=== PATIENT | male | born 1960 | race Caucasian/White ===

== ENCOUNTER 2021-05-04 14:42 | Emergency (ER) | payer SELFPAY ==
[2021-05-04 14:48] VITALS: BP_SYST 188
--- NOTE | 2021-05-04 15:11 | NUR ---
patient to ed at this for overdose. According to [facility] patient took an edible. patient denies taking an edible. patient NSR to [facility]. patient b/p hypertensive. unable to obtain to urine at this time but will give urinal. will obtain another blood sugar and monitor patient.
[2021-05-04] MEDS ORDERED: NS 500 ML IV ONE (15:15)
--- NOTE | 2021-05-04 15:22 | NUR ---
[facility] at bedside for chest xray at this time. waiting for patient's arm band to scan for accucheck. notified.
[2021-05-04 16:53] LABS: BASOPHILS % (AUTO) 0.1 % (0.0-2.0); HEMATOCRIT 41.2 % (36-54); HEMOGLOBIN 14.1 g/dL (14.0-18.0); LYMPHOCYTES # (AUTO) 0.7 K/uL (1.0-5.5); LYMPHOCYTES % (AUTO) 4.4 % (20.5-51.5); MEAN CORPUSCULAR HEMOGLOBIN 30 pg (27-31); MEAN CORPUSCULAR HGB CONC 34 % (32-36); MEAN CORPUSCULAR VOLUME 87 fL (79.0-98.0); MONOCYTES # (AUTO) 0.5 K/uL (0.0-1.0); MONOCYTES % (AUTO) 3.1 % (1.7-9.3); NEUTROPHILS # (AUTO) 15.2 K/uL (1.8-7.7); NEUTROPHILS % (AUTO) 92.4 % (40.0-70.0); PLATELET COUNT (AUTO) 241 K/uL (130-430); RED BLOOD CELL COUNT(AUTO) 4.76 MIL/uL (4.2-6.2); RED CELL DISTRIBUTION WIDTH 13.2 % (9.0-15.0); WHITE BLOOD COUNT (AUTO) 16.4 K/uL (4.8-10.8)
[2021-05-04 17:01] LABS: ANION GAP 12 (5-15); CALCIUM 8.8 mg/dL (8.4-11.0); CHLORIDE 99 mmol/L (98-107); CREATININE 1.87 mg/dL (0.55-1.30); GLUCOSE 204 mg/dL (70-99); SODIUM SERUM 138 mmol/L (136-145); UREA NITROGEN, BLOOD 19 mg/dL (8-21)
[2021-05-04 17:04] LABS: GFR AFRICAN AMERICAN 48 mL/min (>90); POTASSIUM 2.9 mmol/L (3.5-5.1)
--- NOTE | 2021-05-04 17:09 | NUR ---
PATIENT POTASSIUM 2.9 AND REPORTED TO THE MD AT THIS TIME
[2021-05-04 17:12] LABS: ALANINE AMINOTRANSFERASE 45 U/L (12-78); ALBUMIN 3.6 g/dL (3.4-4.8); ASPARTATE AMINOTRANSFERASE 52 U/L (10-37); TOTAL BILIRUBIN 0.3 mg/dL (0.0-1.0)
[2021-05-04 17:13] LABS: ALCOHOL, BLOOD < 3 mg/dL (<10)
[2021-05-04] MEDS ORDERED: POTASSIUM CHLORIDE 10 MEQ in NACL 0.9% 1,000 ML IV SCH ×8 (17:15)
[2021-05-04] MEDS ORDERED: ONDANSETRON HCL 4 MG/2 ML VIAL IVP ONE (17:15)
--- NOTE | 2021-05-04 17:27 | NUR ---
patient had one large brown emesis at this time. cleaned and given gown and clean linen. patient NSR on the monitor patient refusing to stay in hospital. troponin elevataed and md aware. denies cp, will obtain ekg at this time. nursing service administrator unable to obtain earlier due to patient unable to sit still.
[2021-05-04] MEDS ORDERED: ASPIRIN 325 MG TABLET PO ONE (17:30)
[2021-05-04] MEDS ORDERED: POTASSIUM CHLORIDE 20 MEQ/PKT PACKET PO ONE ×2 (17:30)
[2021-05-04 18:00] LABS: BILIRUBIN,URINE NEGATIVE (NEGATIVE); BLOOD, URINE 2+ (NEGATIVE); CLARITY/URINE CLEAR (CLEAR); COLOR,URINE YELLOW (YELLOW); GLUCOSE,URINE 3+ (NEGATIVE); KETONES,URINE NEGATIVE (NEGATIVE); LEUKOCYTE ESTERASE ,URINE NEGATIVE (NEGATIVE); NITRITE, URINE NEGATIVE (NEGATIVE); PROTEIN URINE 2+ (NEGATIVE); UROBILINOGEN,URINE 0.2 (0.2-1.0)
[2021-05-04 18:31] LABS: BACTERIA,URINE FEW /HPF (None Seen); WBC,URINE 0-3 /HPF (0-3)
[2021-05-04 18:32] LABS: BARBITURATE, URINE NEGATIVE (NEG <=200); BENZODIAZEPINE, URINE NEGATIVE (NEG <=150); CANNABINOID, URINE NEGATIVE (NEG <=50); COCAINE, URINE NEGATIVE (NEG <=150); METHAMPHETAMINES SCREEN,URINE NEGATIVE (NEG <=500); MUCUS,URINE None Seen /LPF (None Seen); OPIATE, URINE NEGATIVE (NEG <=100); PHENCYCLIDINE SCREEN,URINE NEGATIVE (NEG <=25); UR TRICYCLIC ANTIDEPRESSANTS NEGATIVE (NEG <=300); URINE AMPHETAMINE NEGATIVE (NEG <=500); URINE METHADONE NEGATIVE (NEG <=200); URINE OXYCODONE SCREEN NEGATIVE (NEG <=100); URINE PROPOXYPHENE SCREEN NEGATIVE (NEG <=300)
--- NOTE | 2021-05-04 18:37 | NUR ---
PATIENT B/P HYPERTENSIVE 212/130. MD NOTIFIED AND WAITING FOR ORDERS. PATIENT ASYMPTOMATIC
[2021-05-04] MEDS ORDERED: hydrALAZINE HCL 20 MG/ML VIAL IVP ONE (18:45)
--- NOTE | 2021-05-04 18:45 | NUR ---
HYDRALAZINE 20MG IVP ADMINISTERED AT THIS TIME FOR HYPERTENSION. PATIENT DENIES N/V AT THIS TIME.
--- NOTE | 2021-05-04 18:52 | NUR ---
PATIENT REFUSED COVID TEST AT THIS TIME. PATIENT VERBALIZED WANTING TO LEAVE AT THIS TIME
--- NOTE | 2021-05-04 19:20 | NUR ---
Thorough report recieved from AMRN using SBAR method at pt bedside. Pt looks good, says he is otherwise healthy with no major problems accept HTN with he is not treating but is checking his bp here and there is normal results. Pt is slightly hypertensive wioth SBP in 170s -180s. All other VS stable, PE WNL, good pulses x 4, lungs clear, Pt denies any pain, nausea, dizziness, sob, or n/v. Pt is laying on gurney in pos of comfort, all needs met, all rales up, told to just mitali if he needs anyting at all. No s/sx distress present. All orders complete, nothing pendind, pt is in holding pattern til EDMT is ready for dispo. Pt is refusing most of the course of treatment, doesn't want to be here in the hospital and wants to sign out AMA. Currently awaiting EDMT's greenlight to sign out pt AMA.
[2021-05-04] MEDS ORDERED: LABETALOL 100 MG/ 20ML VIAL IVP ONE (20:45)
--- NOTE | 2021-05-04 21:40 | NUR ---
EDMD gave the greenlight to go ahead and have the patient sign out AMA since he is refusing most treatment and being uncooperative. Pt informed of the possible risks and pt confirms understanding of risks he is taking on himself. Final set of VS stable 146/82, 78bpm, 96%RA, 16rpm, 0/10 pain. Asisted pt to get up, get dressed and preparedfor signing out, IV removed from Lt AC and dressed with 2x2s and table. Pt road tested all the way from bed 1 to waiting room bathroom with steady gait. Pt appear to be low fall risk. Denies any pain, dizziness, n/v, or sob. Witnessed pt enter waiting rooom bathroom without difficulty, ambulating well.
[2021-05-04 22:30] VITALS: BP_SYST 157
--- NOTE | 2021-05-04 22:30 | NUR ---
Note undone in EDM - 05/05/21 at 0053 by [email or web address] Patient had been found down on [facility] parking lot for which patient was returned via wheelchair accompanied w/ security. MD Carias at bedside. Patient found to be awake/alert but eyes drowsy and slight slurred speech but was able to follow commands and answer simple questions. Patient has agreed to remain in ER for continued observation but is refusing admission to hospital. Patient placed on [facility], given blanket vs noted 157/117. Report given to Philip LOZANO.
--- NOTE | 2021-05-04 22:32 | NUR ---
Recieved report from Staff EDRAbdulaziz Martins who had just went out to the parking lot of [facility] and asisted Mr. Garcia who was found on the ground of parking lot infront of hotel down poss ground level fall or LOC. Pt initial VSS except a BP were WNL, oxygenating and perfusing well with good color and appearance. Strong and reg distal pulses x 4ext. 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 According to night staff analyst Eliezer Pt was easily aroasable, aaox3 but a little groggy and was dening drug usage wholesale (unequivically). Pt tisha directrly back to hallway 2 via gurney , immediatly connected to portable monitor, VSS, PE wnl, pt is lucid and does answer questions. out and out right denies any drug usage. Per EDMD, keep in hallway thorough out the nigh for observation. No s/sx of distress present.
[2021-05-04] MEDS ORDERED: NALOXONE HCL 2 MG/2 ML SYR ONE ×2 (23:43→23:46)
== END 2021-05-04 22:32 | disposition left against medical advice (07) ==
LOC: SED 14:42
DX: R77.8 Other specified abnormalities of plasma proteins (principal); E87.5 Hyperkalemia; Z20.822 Contact with and (suspected) exposure to COVID-19; Z79.899 Other long term (current) drug therapy
CPT/HCPCS: 36415; 70450; 71045; 76376; 80053; 80307; 81000; 84484; 85025; 87426; 93005; 96361; 96374; 96375; 99291; G0482; J0360; J2310; J2405; J3480; J3490; J7030; 99285

== ENCOUNTER 2021-05-04 22:30 | Emergency (ER) | payer SELFPAY ==
[2021-05-04 22:30] VITALS: BP_SYST 151
[2021-05-05] MEDS ORDERED: NALOXONE HCL 2 MG/2 ML SYR (NARCAN) IM ONE (00:30)
[2021-05-05] MEDS ORDERED: NALOXONE HCL 2 MG/2 ML SYR IVP ONE (00:30)
[2021-05-05] MEDS ORDERED: NALOXONE HCL 2 MG/2 ML SYR (NARCAN) IVP ONE (00:45)
[2021-05-05] MEDS ORDERED: NALOXONE HCL 2 MG/2 ML SYR (NARCAN) IVP PRN (01:00)
[2021-05-05 02:13] LABS: ANION GAP 12 (5-15); CALCIUM 8.2 mg/dL (8.4-11.0); CHLORIDE 101 mmol/L (98-107); CREATININE 1.55 mg/dL (0.55-1.30); GLUCOSE 130 mg/dL (70-99); POTASSIUM 3.6 mmol/L (3.5-5.1); SODIUM SERUM 138 mmol/L (136-145); UREA NITROGEN, BLOOD 20 mg/dL (8-21)
[2021-05-05 02:14] LABS: GFR AFRICAN AMERICAN 59 mL/min (>90)
[2021-05-05 02:23] LABS: BASOPHILS % (AUTO) 0.1 % (0.0-2.0); HEMATOCRIT 38.4 % (36-54); LYMPHOCYTES # (AUTO) 0.5 K/uL (1.0-5.5); LYMPHOCYTES % (AUTO) 3.9 % (20.5-51.5); MEAN CORPUSCULAR HEMOGLOBIN 29 pg (27-31); MEAN CORPUSCULAR HGB CONC 34 % (32-36); MEAN CORPUSCULAR VOLUME 87 fL (79.0-98.0); MONOCYTES # (AUTO) 0.5 K/uL (0.0-1.0); MONOCYTES % (AUTO) 4.1 % (1.7-9.3); NEUTROPHILS # (AUTO) 11.7 K/uL (1.8-7.7); NEUTROPHILS % (AUTO) 91.9 % (40.0-70.0); PLATELET COUNT (AUTO) 252 K/uL (130-430); RED BLOOD CELL COUNT(AUTO) 4.43 MIL/uL (4.2-6.2); RED CELL DISTRIBUTION WIDTH 13.5 % (9.0-15.0); WHITE BLOOD COUNT (AUTO) 12.7 K/uL (4.8-10.8)
[2021-05-05 02:30] LABS: ALANINE AMINOTRANSFERASE 37 U/L (12-78); ALBUMIN 3.3 g/dL (3.4-4.8); ASPARTATE AMINOTRANSFERASE 64 U/L (10-37); TOTAL BILIRUBIN 0.5 mg/dL (0.0-1.0)
[2021-05-05 02:34] LABS: ACETAMINOPHEN < 1 ug/mL (1-30); ALCOHOL, BLOOD < 3 mg/dL (<10)
== END 2021-05-05 23:35 | disposition left against medical advice (07) ==
LOC: SED 22:30 → STU 05-05 02:52 → UNDOADMIN 05-05 02:52 → UNDODISIN 05-05 05:45 → SED 05-05 22:30
DX: T40.2X1A Poisoning by other opioids, accidental (unintentional), initial encounter (principal); I21.9 Acute myocardial infarction, unspecified; Y92.89 Other specified places as the place of occurrence of the external cause; Z53.29 Procedure and treatment not carried out because of patient's decision for other reasons
CPT/HCPCS: 36415; 70450; 71045; 76376; 80053; 83605; 84484; 85025; 85610; 93005; 99285; G0480; G0481; G0482; G0378

== ENCOUNTER 2021-11-29 10:35 | Emergency (ER) | payer MEDICAID ==
[~2021-11-29] VITALS: Ht 190.5 cm; Wt 108.9 kg
[~2021-11-29 10:35] MED LIST: HYDR-4038 PO; METO50TA7 PO; NOR10 PO
[2021-11-29 11:07] VITALS: BP_SYST 187
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
--- NOTE | 2021-11-29 11:30 | NUR ---
Patient to ER bed H1 to gown for evaluation. Side rails up.
[2021-11-29 11:43] LABS: BASOPHILS % (AUTO) 0.4 % (0.0-2.0); EOSINOPHILS # (AUTO) 0.1 K/uL (0.0-0.4); HEMATOCRIT 36.4 % (36-54); HEMOGLOBIN 13.1 g/dL (14.0-18.0); LYMPHOCYTES # (AUTO) 1.7 K/uL (1.0-5.5); LYMPHOCYTES % (AUTO) 21.4 % (20.5-51.5); MEAN CORPUSCULAR HEMOGLOBIN 31 pg (27-31); MEAN CORPUSCULAR HGB CONC 36 % (32-36); MEAN CORPUSCULAR VOLUME 87 fL (79.0-98.0); MONOCYTES # (AUTO) 0.6 K/uL (0.0-1.0); MONOCYTES % (AUTO) 6.8 % (1.7-9.3); NEUTROPHILS # (AUTO) 5.7 K/uL (1.8-7.7); NEUTROPHILS % (AUTO) 70.4 % (40.0-70.0); PLATELET COUNT (AUTO) 275 K/uL (130-430); RED BLOOD CELL COUNT(AUTO) 4.17 MIL/uL (4.2-6.2); RED CELL DISTRIBUTION WIDTH 14.4 % (9.0-15.0)
[2021-11-29] MEDS ORDERED: hydrALAZINE HCL 20 MG/ML VIAL IVP ONE (11:45)
[2021-11-29 12:15] LABS: ANION GAP 8 (5-15); CALCIUM 8.8 mg/dL (8.4-11.0); CHLORIDE 101 mmol/L (98-107); CREATININE 1.57 mg/dL (0.55-1.30); GLUCOSE 123 mg/dL (70-99); POTASSIUM 4.1 mmol/L (3.5-5.1); SODIUM SERUM 136 mmol/L (136-145); UREA NITROGEN, BLOOD 31 mg/dL (8-21)
[2021-11-29 12:23] LABS: ALANINE AMINOTRANSFERASE 17 U/L (12-78); ASPARTATE AMINOTRANSFERASE 23 U/L (10-37); TOTAL BILIRUBIN 0.3 mg/dL (0.0-1.0)
[2021-11-29 12:29] LABS: GFR AFRICAN AMERICAN 58 mL/min (>90)
--- NOTE | 2021-11-29 12:59 | NUR ---
EKG performed at BS by EMT. Physician given copy of EKG for review.
--- NOTE | 2021-11-29 13:14 | NUR ---
# 20 gauge angiocath placed to RH. Use of asceptic technique. Opsite placed over site. Blood return noted. Flushed with 10 cc of normal saline. No evidence of infiltration noted. Patient tolerated well.
--- NOTE | 2021-11-29 13:16 | NUR ---
PT CAR ENDORSED TO VERNA LOZANO
--- NOTE | 2021-11-29 13:31 | NUR ---
PT PRESENTED TO ER TO REMOVE ANGEL. ANGEL REMOVED. PT HAD VITALS TAKEN AND WAS HYPERTENSIVE. PT WAS BROUGHT BY FRIEND TO ER VIA PRIVATE VEHICLE. PT IS IN BED [facility] BED LOWERED, LOCKED AND RAILS UP. WILL CONTINUE TO MONITOR
[2021-11-29] MEDS ORDERED: LABETALOL HCL 20 MG/4 ML CARTRIDGE IVP ONE (14:30)
[2021-11-29] MEDS ORDERED: NITROGLYCERIN 0.4 MG TAB.SUBL SL ONE (16:45)
--- NOTE | 2021-11-29 17:20 | NUR ---
PER DR SCHWARTZ PT OK TO DISCHARGE ONCE DIASTOLIC BP IS 100 OR BELOW
--- NOTE | 2021-11-29 17:20 | NUR ---
Patient given written and verbal discharge instructions and verbalizes understanding. ER MD discussed with patient the results and treatment provided. Patient in stable condition. ID arm band removed. IV catheter removed intact and dressing applied, no active bleeding. NO RX given. Patient educated on pain management and to follow up with PMD. Pain Scale . Opportunity for questions provided and answered. Medication side effect fact sheet provided.
[2021-11-29 17:42] VITALS: BP_SYST 163
== END 2021-11-29 17:40 | disposition home or self-care (01) ==
LOC: SED 10:35
DX: Z48.02 Encounter for removal of sutures (principal); I10 Essential (primary) hypertension; Z79.899 Other long term (current) drug therapy
CPT/HCPCS: 99285; 96374; 70450; 71045; 96375; 80053; 85025; 84484; 36415; 93005; 76376; J0360

== ENCOUNTER 2022-12-22 10:51 | Emergency (ER) | payer SELFPAY ==
[~2022-12-22] VITALS: Ht 190.5 cm; Wt 102.1 kg
[2022-12-22 11:02] VITALS: BP_SYST 211; PULSE 90; RESP 15; TEMP 98.1; O2SAT 99
[2022-12-22] MEDS ORDERED: METHYLPREDNISOLONE SOD SUCC 40 MG/ML VIAL IVP ONE (11:45)
[2022-12-22] MEDS ORDERED: MORPHINE 4 MG INJ. 4 MG/ML VIAL IVP ONE (11:45)
[2022-12-22] MEDS ORDERED: KETOROLAC TROMETHAMINE 30 MG VIAL IVP ONE (11:45)
[2022-12-22] MEDS ORDERED: ONDANSETRON HCL 4 MG/2 ML VIAL IVP ONE (11:45)
[2022-12-22] MEDS ORDERED: NACL 0.9% 1,000 ML IV ONE (11:45)
[2022-12-22] MEDS ORDERED: LABETALOL HCL 20 MG/4 ML CARTRIDGE IVP ONE ×2 (12:30→14:00)
[2022-12-22 12:41] LABS: BASOPHILS % (AUTO) 0.4 % (0.0-2.0); EOSINOPHILS # (AUTO) 0.2 K/uL (0.0-0.4); EOSINOPHILS % (AUTO) 2.7 % (0.0-4.0); HEMATOCRIT 36.7 % (36-54); HEMOGLOBIN 12.4 g/dL (14.0-18.0); LYMPHOCYTES # (AUTO) 1.5 K/uL (1.0-5.5); LYMPHOCYTES % (AUTO) 25.2 % (20.5-51.5); MEAN CORPUSCULAR HEMOGLOBIN 29 pg (27-31); MEAN CORPUSCULAR HGB CONC 34 % (32-36); MEAN CORPUSCULAR VOLUME 86 fL (79.0-98.0); MONOCYTES # (AUTO) 0.4 K/uL (0.0-1.0); MONOCYTES % (AUTO) 7.3 % (1.7-9.3); NEUTROPHILS # (AUTO) 3.8 K/uL (1.8-7.7); NEUTROPHILS % (AUTO) 64.4 % (40.0-70.0); PLATELET COUNT (AUTO) 225 K/uL (130-430); RED BLOOD CELL COUNT(AUTO) 4.28 MIL/uL (4.2-6.2); RED CELL DISTRIBUTION WIDTH 14.3 % (9.0-15.0); WHITE BLOOD COUNT (AUTO) 5.9 K/uL (4.8-10.8)
[2022-12-22 12:59] LABS: CALCIUM 8.6 mg/dL (8.4-11.0); CREATININE 1.82 mg/dL (0.55-1.30); POTASSIUM 3.8 mmol/L (3.5-5.1)
[2022-12-22 13:03] LABS: ALBUMIN 3.6 g/dL (3.4-4.8); TOTAL BILIRUBIN 0.4 mg/dL (0.0-1.0); TOTAL PROTEIN, SERUM 7.7 g/dL (6.4-8.3)
[2022-12-22] MEDS ORDERED: iohexoL 350 mgI/mL, 100 ML INFUS..BTL IV ONE (13:09)
[2022-12-22] MEDS ORDERED: METHOCARBAMOL 1000 MG/10 ML VIAL IVP ONE (13:15)
[2022-12-22 14:51] VITALS: BP_SYST 181; PULSE 68; RESP 18; TEMP 98.6; O2SAT 98
[2022-12-22] MEDS ORDERED: METO-442 PO (15:13)
[2022-12-22] MEDS ORDERED: CLON0.1T PO (15:13)
== END 2022-12-22 15:55 | disposition home or self-care (01) ==
LOC: SED 10:51
DX: M43.16 Spondylolisthesis, lumbar region (principal); M54.50 Low back pain, unspecified; N28.9 Disorder of kidney and ureter, unspecified; M50.30 Other cervical disc degeneration, unspecified cervical region; M54.12 Radiculopathy, cervical region; I10 Essential (primary) hypertension; Z79.899 Other long term (current) drug therapy
CPT/HCPCS: 99285; 71275; 96375; 96374; 96361; 80053; 83690; 85025; 36415; 74175; 72125; 72131; 72191; 96376; 76376; Q9967; J1885; J2800; J2405; J2270; J7030; J1030

== ENCOUNTER 2023-02-07 10:47 | Inpatient (IN) | payer MEDICAID ==
[~2023-02-07] VITALS: Ht 175.3 cm; Wt 83.0 kg
[~2023-02-07 10:47] MED LIST changes: +CLON0.1T PO; +METO-442 PO
[2023-02-07 10:48] VITALS: BP_SYST 180; PULSE 81; RESP 20; TEMP 98.1; O2SAT 98
[2023-02-07] MEDS ORDERED: iohexoL 350 mgI/mL, 100 ML INFUS..BTL IV ONE (10:56)
[2023-02-07 11:29] LABS: MEAN CORPUSCULAR HEMOGLOBIN 29 pg (27-31); MEAN CORPUSCULAR VOLUME 88 fL (79.0-98.0); WHITE BLOOD COUNT (AUTO) 6.4 K/uL (4.8-10.8)
[2023-02-07 11:30] LABS: BASOPHILS % (AUTO) 0.3 % (0.0-2.0); LYMPHOCYTES % (AUTO) 17.4 % (20.5-51.5); MEAN CORPUSCULAR HGB CONC 33 % (32-36); MONOCYTES % (AUTO) 5.3 % (1.7-9.3); NEUTROPHILS # (AUTO) 4.8 K/uL (1.8-7.7); PLATELET COUNT (AUTO) 206 K/uL (130-430); RED CELL DISTRIBUTION WIDTH 13.8 % (9.0-15.0)
[2023-02-07 11:31] LABS: EOSINOPHILS # (AUTO) 0.1 K/uL (0.0-0.4); LYMPHOCYTES # (AUTO) 1.1 K/uL (1.0-5.5); MONOCYTES # (AUTO) 0.3 K/uL (0.0-1.0)
[2023-02-07] MEDS ORDERED: LABETALOL HCL 20 MG/4 ML CARTRIDGE IVP ONE ×2 (11:45→13:15)
[2023-02-07 11:48] LABS: HEMOGLOBIN A1C 4.79 % (<5.7)
[2023-02-07 11:50] LABS: INR 1.9 (0.80-1.20); PROTHROMBIN TIME 11.3 SECS (9.5-12.5)
[2023-02-07 11:57] LABS: ANION GAP 10 (5-15); CALCIUM 8.4 mg/dL (8.4-11.0); CARBON DIOXIDE 25 mmol/L (23-29); CHLORIDE 101 mmol/L (98-107); CREATININE 1.82 mg/dL (0.55-1.30); GFR AFRICAN AMERICAN 49 mL/min (>90); GFR NON AFRICAN-AMERICAN 40 mL/min (>90); GLUCOSE 127 mg/dL (74-106); POTASSIUM 3.3 mmol/L (3.5-5.1); SODIUM SERUM 136 mmol/L (136-145); TOTAL BILIRUBIN 0.4 mg/dL (0.0-1.0); UREA NITROGEN, BLOOD 29 mg/dL (8-21)
[2023-02-07 11:58] LABS: ALANINE AMINOTRANSFERASE 12 U/L (12-78); ALBUMIN 3.2 g/dL (3.4-4.8); ASPARTATE AMINOTRANSFERASE 11 U/L (10-37); CHOLESTEROL 168 mg/dL (<200); CREATINE KINASE, TOTAL 69 U/L (39-308); TOTAL PROTEIN, SERUM 6.6 g/dL (6.4-8.3); TRIGLYCERIDES 63 mg/dL (30-150)
[2023-02-07 11:59] LABS: HDL CHOLESTEROL 63 mg/dL (>45)
[2023-02-07] MEDS ORDERED: ASPIRIN 81 MG TAB.CHEW PO ONE (12:45)
[2023-02-07] MEDS ORDERED: CLOPIDOGREL BISULFATE 75 MG TABLET PO ONE (12:45)
[2023-02-07 12:57] LABS: BILIRUBIN,URINE NEGATIVE (NEGATIVE); BLOOD, URINE TRACE (NEGATIVE); CLARITY/URINE CLEAR (CLEAR); COLOR,URINE YELLOW (YELLOW); GLUCOSE,URINE NEGATIVE (NEGATIVE); KETONES,URINE NEGATIVE (NEGATIVE); LEUKOCYTE ESTERASE ,URINE NEGATIVE (NEGATIVE); NITRITE, URINE NEGATIVE (NEGATIVE); PROTEIN URINE 1+ (NEGATIVE); UROBILINOGEN,URINE 0.2 (0.2-1.0)
[2023-02-07 13:04] LABS: BARBITURATE, URINE NEGATIVE (NEG <=200); BENZODIAZEPINE, URINE NEGATIVE (NEG <=150); CANNABINOID, URINE NEGATIVE (NEG <=50); COCAINE, URINE NEGATIVE (NEG <=150); METHAMPHETAMINES SCREEN,URINE NEGATIVE (NEG <=500); OPIATE, URINE NEGATIVE (NEG <=100); PHENCYCLIDINE SCREEN,URINE NEGATIVE (NEG <=25); UR TRICYCLIC ANTIDEPRESSANTS NEGATIVE (NEG <=300); URINE AMPHETAMINE NEGATIVE (NEG <=500); URINE METHADONE NEGATIVE (NEG <=200); URINE OXYCODONE SCREEN NEGATIVE (NEG <=100); URINE PROPOXYPHENE SCREEN NEGATIVE (NEG <=300)
[2023-02-07 13:10] LABS: BACTERIA,URINE None Seen /HPF (None Seen); RBC,URINE 0-3 /HPF (0-3); WBC,URINE NONE SEEN /HPF (0-3)
[2023-02-07] MEDS ORDERED: hydrALAZINE HCL 25 MG TABLET PO ONE (15:00)
[2023-02-07 17:03] VITALS: BP_SYST 177; PULSE 62; RESP 18; TEMP 98.6
[2023-02-07 17:26] VITALS: BP_SYST 187
[2023-02-07] MEDS: cloNIDine HCL 0.1 MG TABLET PO PRN (17:26)
[2023-02-07 17:57] VITALS: BP_SYST 175
[2023-02-07] MEDS ORDERED: HYDROcodone/ACETAMIN 5-325 MG TAB (NORCO/ VICODIN) PO PRN ×2 (18:00→18:15)
[2023-02-07] MEDS ORDERED: ACETAMINOPHEN 325 MG TABLET PO PRN ×2 (18:00→18:15)
[2023-02-07] MEDS ORDERED: LORazepam 2 MG/ML VIAL IVP PRN (18:00)
[2023-02-07] MEDS ORDERED: NALOXONE HCL 0.4 MG/ML AMP (NARCAN) IVP PRN ×2 (18:00)
[2023-02-07] MEDS ORDERED: ONDANSETRON HCL 4 MG/2 ML VIAL IVP PRN (18:00)
[2023-02-07] MEDS ORDERED: amLODIPine BESYLATE 10 MG TABLET PO ONE (18:15)
[2023-02-07 20:00] VITALS: BP_SYST 149; PULSE 64; RESP 18; TEMP 97.2; O2SAT 95
[2023-02-07] MEDS: D5/0.45 NS 1,000 ML IV SCH (20:25)
[2023-02-07] MEDS ORDERED: METOPROLOL TARTRATE 50 MG TABLET PO SCH (21:00)
[2023-02-07] MEDS ORDERED: hydrALAZINE HCL 25 MG TABLET PO SCH (22:00)
[2023-02-07] MEDS: hydrALAZINE HCL 25 MG TABLET PO SCH (22:20)
[2023-02-08 00:35] VITALS: BP_SYST 147; PULSE 60; RESP 18; TEMP 98.4; O2SAT 98
[2023-02-08 05:16] LABS: BASOPHILS % (AUTO) 0.3 % (0.0-2.0); EOSINOPHILS # (AUTO) 0.2 K/uL (0.0-0.4); HEMATOCRIT 37.3 % (36-54); HEMOGLOBIN 12.5 g/dL (14.0-18.0); LYMPHOCYTES # (AUTO) 0.8 K/uL (1.0-5.5); LYMPHOCYTES % (AUTO) 13.7 % (20.5-51.5); MEAN CORPUSCULAR HEMOGLOBIN 29 pg (27-31); MEAN CORPUSCULAR HGB CONC 34 % (32-36); MEAN CORPUSCULAR VOLUME 87 fL (79.0-98.0); MONOCYTES # (AUTO) 0.4 K/uL (0.0-1.0); MONOCYTES % (AUTO) 7.5 % (1.7-9.3); NEUTROPHILS # (AUTO) 4.2 K/uL (1.8-7.7); NEUTROPHILS % (AUTO) 75.5 % (40.0-70.0); PLATELET COUNT (AUTO) 221 K/uL (130-430); RED BLOOD CELL COUNT(AUTO) 4.27 MIL/uL (4.2-6.2); RED CELL DISTRIBUTION WIDTH 13.8 % (9.0-15.0); WHITE BLOOD COUNT (AUTO) 5.5 K/uL (4.8-10.8)
[2023-02-08 05:53] LABS: ALBUMIN 3.2 g/dL (3.4-4.8); CALCIUM 8.6 mg/dL (8.4-11.0); CREATININE 1.61 mg/dL (0.55-1.30); PHOSPHORUS 3.8 mg/dL (2.7-4.5); TOTAL BILIRUBIN 0.3 mg/dL (0.0-1.0); TOTAL PROTEIN, SERUM 6.7 g/dL (6.4-8.3)
[2023-02-08 05:56] LABS: POTASSIUM 2.9 mmol/L (3.5-5.1)
[2023-02-08] MEDS ORDERED: POTASSIUM CHLORIDE 40 MEQ in NS 250 ML IV ONE (06:45)
[2023-02-08 07:30] VITALS: BP_SYST 146; PULSE 56; TEMP 97.6
[2023-02-08] MEDS ORDERED: POTASSIUM CHLORIDE 20 MEQ/PKT PACKET PO ONE (08:00)
[2023-02-08] MEDS: ASPIRIN 81 MG TABLET(ECOTRIN) PO SCH (08:32)
[2023-02-08] MEDS: hydrALAZINE HCL 25 MG TABLET PO SCH ×3 (08:33→21:07)
[2023-02-08] MEDS: predniSONE 20 MG TABLET PO SCH (08:35)
[2023-02-08] MEDS ORDERED: amLODIPine BESYLATE 10 MG TABLET PO SCH (09:00)
[2023-02-08] MEDS ORDERED: CLOPIDOGREL BISULFATE 75 MG TABLET PO SCH (09:00)
[2023-02-08 11:42] VITALS: BP_SYST 150; PULSE 56; RESP 18; TEMP 97.1; O2SAT 98
[2023-02-08] MEDS: D5/0.45 NS 1,000 ML IV SCH (13:08)
[2023-02-08] MEDS: METOPROLOL SUCCINATE 50 MG TAB.SR.24H (TOPROL XL) PO SCH (13:09)
[2023-02-08] MEDS: ACYCLOVIR 400 MG TABLET PO SCH ×2 (14:50→21:08)
[2023-02-08 20:00] VITALS: BP_SYST 164; PULSE 73; RESP 18; TEMP 97.4; O2SAT 98
[2023-02-08 22:04] VITALS: BP_SYST 156; PULSE 68; RESP 18; O2SAT 96
[2023-02-08 22:45] VITALS: O2SAT 98
[2023-02-09] VITALS: BP_SYST 149; PULSE 61; RESP 18; TEMP 98.1; O2SAT 96
[2023-02-09 05:13] LABS: BASOPHILS % (AUTO) 0.1 % (0.0-2.0); EOSINOPHILS % (AUTO) 0.1 % (0.0-4.0); HEMATOCRIT 37.6 % (36-54); HEMOGLOBIN 12.6 g/dL (14.0-18.0); LYMPHOCYTES % (AUTO) 12.4 % (20.5-51.5); MEAN CORPUSCULAR HEMOGLOBIN 29 pg (27-31); MEAN CORPUSCULAR HGB CONC 33 % (32-36); MEAN CORPUSCULAR VOLUME 88 fL (79.0-98.0); MONOCYTES # (AUTO) 0.5 K/uL (0.0-1.0); MONOCYTES % (AUTO) 6.3 % (1.7-9.3); NEUTROPHILS # (AUTO) 6.5 K/uL (1.8-7.7); NEUTROPHILS % (AUTO) 81.1 % (40.0-70.0); PLATELET COUNT (AUTO) 236 K/uL (130-430); RED CELL DISTRIBUTION WIDTH 14.1 % (9.0-15.0); WHITE BLOOD COUNT (AUTO) 8.1 K/uL (4.8-10.8)
[2023-02-09 05:36] LABS: ALBUMIN 3.2 g/dL (3.4-4.8); CREATININE 1.66 mg/dL (0.55-1.30); PHOSPHORUS 3.1 mg/dL (2.7-4.5); POTASSIUM 4.1 mmol/L (3.5-5.1); TOTAL BILIRUBIN 0.3 mg/dL (0.0-1.0); TOTAL PROTEIN, SERUM 6.6 g/dL (6.4-8.3)
[2023-02-09] MEDS: ACYCLOVIR 400 MG TABLET PO SCH ×2 (06:18→14:00)
[2023-02-09] MEDS: D5/0.45 NS 1,000 ML IV SCH ×2 (06:20→15:17)
[2023-02-09] MEDS: cloNIDine HCL 0.1 MG TABLET PO PRN ×2 (07:05→16:35)
[2023-02-09 08:00] VITALS: BP_SYST 164; PULSE 68; RESP 17; TEMP 98.7; O2SAT 98
[2023-02-09] MEDS: hydrALAZINE HCL 25 MG TABLET PO SCH ×2 (08:31→15:00)
[2023-02-09] MEDS: predniSONE 20 MG TABLET PO SCH (08:31)
[2023-02-09] MEDS: METOPROLOL SUCCINATE 50 MG TAB.SR.24H (TOPROL XL) PO SCH (08:32)
[2023-02-09] MEDS: ASPIRIN 81 MG TABLET(ECOTRIN) PO SCH (08:32)
[2023-02-09 12:00] VITALS: BP_SYST 145; PULSE 65; RESP 16; TEMP 98.1; O2SAT 95
[2023-02-09 16:00] VITALS: BP_SYST 147; PULSE 68; RESP 16; TEMP 98.7; O2SAT 97
[2023-02-09 16:29] VITALS: BP_SYST 167; PULSE 69; RESP 17; TEMP 98.9; O2SAT 98
[2023-02-09] MEDS ORDERED: TAMSULOSIN HCL 0.4 MG CAP PO ONE (16:30)
[2023-02-09 18:32] VITALS: BP_SYST 142
[2023-02-10] MEDS ORDERED: amLODIPine BESYLATE 10 MG TABLET PO SCH (09:00)
[2023-02-10] MEDS ORDERED: TAMSULOSIN HCL 0.4 MG CAP PO SCH (09:00)
== END 2023-02-09 20:45 | disposition left against medical advice (07) | DRG 469 ==
LOC: SED 10:47 → STU 13:09
PROVIDERS: ADMIT Preventive Medicine Preventive Medicine/Occupational Environmental Medicine; ATTEND Preventive Medicine Preventive Medicine/Occupational Environmental Medicine
DX: N17.9 Acute kidney failure, unspecified (principal); E44.1 Mild protein-calorie malnutrition; E87.1 Hypo-osmolality and hyponatremia; E83.41 Hypermagnesemia; I65.01 Occlusion and stenosis of right vertebral artery; G51.0 Bell's palsy; I70.1 Atherosclerosis of renal artery; E87.6 Hypokalemia; N13.30 Unspecified hydronephrosis; R73.9 Hyperglycemia, unspecified; I12.9 Hypertensive chronic kidney disease with stage 1 through stage 4 chronic kidney disease, or unspecified chronic kidney disease; N18.30 Chronic kidney disease, stage 3 unspecified; Z91.199 Patient's noncompliance with other medical treatment and regimen due to unspecified reason; Z87.891 Personal history of nicotine dependence; Z68.27 Body mass index [BMI] 27.0-27.9, adult; Z53.29 Procedure and treatment not carried out because of patient's decision for other reasons
CPT/HCPCS: 36415; 70450-TC; 70496; 70498; 70551; 71045; 76376; 76770; 78707; 80053; 80061; 80307; 81000; 81001; 81015; 82550; 83037; 83735; 83880; 84100; 84484; 85025; 85610-TC; 85730-TC; 86886; 86900; 86901; 93005; 93306; 96374; 96376; 97110-GP; 97116-GP; 97530-GP; 99291; A9562; G0378; J3480; J7050; J7512; Q9967

== ENCOUNTER 2023-05-12 08:51 | Inpatient (IN) | payer SELFPAY ==
[~2023-05-12] VITALS: Ht 170.2 cm; Wt 108.0 kg
[2023-05-12 08:58] VITALS: BP_SYST 187; PULSE 93; RESP 18; O2SAT 98
[2023-05-12] MEDS ORDERED: iohexoL 350 mgI/mL, 100 ML INFUS..BTL IV ONE (09:01)
[2023-05-12] MEDS ORDERED: ASPIRIN 325 MG TABLET PO ONE (09:45)
[2023-05-12] MEDS ORDERED: LABETALOL HCL 20 MG/4 ML CARTRIDGE IVP ONE (09:45)
[2023-05-12 09:46] LABS: BASOPHILS % (AUTO) 0.3 % (0.0-2.0); EOSINOPHILS % (AUTO) 0.6 % (0.0-4.0); HEMATOCRIT 42.2 % (36-54); HEMOGLOBIN 14.7 g/dL (14.0-18.0); LYMPHOCYTES # (AUTO) 1.1 K/uL (1.0-5.5); LYMPHOCYTES % (AUTO) 15.4 % (20.5-51.5); MEAN CORPUSCULAR HEMOGLOBIN 30 pg (27-31); MEAN CORPUSCULAR HGB CONC 35 % (32-36); MEAN CORPUSCULAR VOLUME 86 fL (79.0-98.0); MONOCYTES # (AUTO) 0.3 K/uL (0.0-1.0); MONOCYTES % (AUTO) 4.4 % (1.7-9.3); NEUTROPHILS # (AUTO) 5.4 K/uL (1.8-7.7); NEUTROPHILS % (AUTO) 79.3 % (40.0-70.0); PLATELET COUNT (AUTO) 215 K/uL (130-430); RED CELL DISTRIBUTION WIDTH 13.6 % (9.0-15.0); WHITE BLOOD COUNT (AUTO) 6.8 K/uL (4.8-10.8)
[2023-05-12 09:51] LABS: ANION GAP 12 (5-15); CALCIUM 9.3 mg/dL (8.4-11.0); CARBON DIOXIDE 24 mmol/L (23-29); CHLORIDE 103 mmol/L (98-107); CREATININE 1.89 mg/dL (0.55-1.30); GFR AFRICAN AMERICAN 47 mL/min (>90); GFR NON AFRICAN-AMERICAN 39 mL/min (>90); GLUCOSE 105 mg/dL (74-106); POTASSIUM 3.3 mmol/L (3.5-5.1); SODIUM SERUM 139 mmol/L (136-145); UREA NITROGEN, BLOOD 21 mg/dL (8-21)
[2023-05-12 09:53] LABS: INR 1.1 (0.80-1.20)
[2023-05-12 09:58] LABS: CHOLESTEROL 197 mg/dL (<200); HDL CHOLESTEROL 85 mg/dL (>45); TRIGLYCERIDES 61 mg/dL (30-150)
[2023-05-12 10:28] LABS: HEMOGLOBIN A1C 5.23 % (<5.7)
[2023-05-12] MEDS ORDERED: HYDROcodone/ACETAMIN 10-325 MG TAB PO PRN (10:30)
[2023-05-12] MEDS ORDERED: METOPROLOL TARTRATE 50 MG TABLET PO ONE (10:30)
[2023-05-12] MEDS ORDERED: LORazepam 2 MG/ML VIAL IVP PRN (10:30)
[2023-05-12] MEDS ORDERED: HYDROcodone/ACETAMIN 5-325 MG TAB (NORCO/ VICODIN) PO PRN (10:30)
[2023-05-12] MEDS ORDERED: ONDANSETRON HCL 4 MG/2 ML VIAL IVP PRN (10:30)
[2023-05-12] MEDS ORDERED: cloNIDine HCL 0.1 MG TABLET PO PRN (10:30)
[2023-05-12] MEDS ORDERED: ACETAMINOPHEN 325 MG TABLET PO PRN ×2 (10:30→11:45)
[2023-05-12] MEDS ORDERED: ASPI-524 (10:51)
[2023-05-12 11:40] LABS: BILIRUBIN,URINE NEGATIVE (NEGATIVE); CLARITY/URINE CLEAR (CLEAR); COLOR,URINE YELLOW (YELLOW); GLUCOSE,URINE NEGATIVE (NEGATIVE); KETONES,URINE NEGATIVE (NEGATIVE); LEUKOCYTE ESTERASE ,URINE NEGATIVE (NEGATIVE); NITRITE, URINE NEGATIVE (NEGATIVE); PROTEIN URINE 2+ (NEGATIVE); UROBILINOGEN,URINE 0.2 (0.2-1.0)
[2023-05-12] MEDS ORDERED: METOPROLOL SUCCINATE 50 MG TAB.SR.24H (TOPROL XL) PO ONE (11:45)
[2023-05-12] MEDS ORDERED: amLODIPine BESYLATE 10 MG TABLET PO ONE (11:45)
[2023-05-12] MEDS ORDERED: hydrALAZINE HCL 25 MG TABLET PO ONE (11:45)
[2023-05-12 11:54] LABS: BLOOD, URINE TRACE (NEGATIVE)
[2023-05-12 12:04] LABS: BARBITURATE, URINE NEGATIVE (NEG <=200); BENZODIAZEPINE, URINE NEGATIVE (NEG <=150); CANNABINOID, URINE NEGATIVE (NEG <=50); COCAINE, URINE NEGATIVE (NEG <=150); METHAMPHETAMINES SCREEN,URINE NEGATIVE (NEG <=500); OPIATE, URINE NEGATIVE (NEG <=100); PHENCYCLIDINE SCREEN,URINE NEGATIVE (NEG <=25); URINE AMPHETAMINE NEGATIVE (NEG <=500); URINE METHADONE NEGATIVE (NEG <=200); URINE OXYCODONE SCREEN NEGATIVE (NEG <=100)
[2023-05-12 12:05] LABS: UR TRICYCLIC ANTIDEPRESSANTS NEGATIVE (NEG <=300)
[2023-05-12 12:19] LABS: BACTERIA,URINE None Seen /HPF (None Seen); WBC,URINE NONE SEEN /HPF (0-3)
[2023-05-12] MEDS: NORMAL SALINE 5 ML DISP.SYRIN IVF SCH ×2 (14:00→21:31)
[2023-05-12] MEDS: NACL 0.9% 1,000 ML IV SCH (17:00)
[2023-05-12 18:31] VITALS: BP_SYST 153; PULSE 99; RESP 19; TEMP 98.2; O2SAT 99
[2023-05-12 20:00] VITALS: BP_SYST 133; PULSE 72; RESP 18; TEMP 98.2; O2SAT 98
[2023-05-12] MEDS ORDERED: METOPROLOL TARTRATE 50 MG TABLET PO SCH (21:00)
[2023-05-13 00:01] VITALS: BP_SYST 115; PULSE 78; RESP 18; TEMP 98.5; O2SAT 97
[2023-05-13] MEDS: NORMAL SALINE 5 ML DISP.SYRIN IVF SCH ×3 (01:32→21:43)
[2023-05-13] MEDS: NACL 0.9% 1,000 ML IV SCH (01:32)
[2023-05-13 06:37] LABS: BASOPHILS % (AUTO) 0.5 % (0.0-2.0); EOSINOPHILS # (AUTO) 0.2 K/uL (0.0-0.4); EOSINOPHILS % (AUTO) 3.2 % (0.0-4.0); HEMOGLOBIN 12.8 g/dL (14.0-18.0); LYMPHOCYTES # (AUTO) 1.1 K/uL (1.0-5.5); LYMPHOCYTES % (AUTO) 22.9 % (20.5-51.5); MEAN CORPUSCULAR HEMOGLOBIN 30 pg (27-31); MEAN CORPUSCULAR HGB CONC 35 % (32-36); MEAN CORPUSCULAR VOLUME 86 fL (79.0-98.0); MONOCYTES # (AUTO) 0.4 K/uL (0.0-1.0); MONOCYTES % (AUTO) 7.4 % (1.7-9.3); NEUTROPHILS # (AUTO) 3.3 K/uL (1.8-7.7); PLATELET COUNT (AUTO) 220 K/uL (130-430); RED BLOOD CELL COUNT(AUTO) 4.31 MIL/uL (4.2-6.2); RED CELL DISTRIBUTION WIDTH 13.5 % (9.0-15.0)
[2023-05-13 06:57] LABS: ALBUMIN 3.3 g/dL (3.4-4.8); CALCIUM 8.7 mg/dL (8.4-11.0); CREATININE 1.99 mg/dL (0.55-1.30); PHOSPHORUS 3.7 mg/dL (2.7-4.5); POTASSIUM 3.8 mmol/L (3.5-5.1); TOTAL BILIRUBIN 0.5 mg/dL (0.0-1.0); TOTAL PROTEIN, SERUM 6.7 g/dL (6.4-8.3)
[2023-05-13 08:27] VITALS: BP_SYST 147; PULSE 69; RESP 20; TEMP 99.2; O2SAT 97
[2023-05-13] MEDS: hydrALAZINE HCL 25 MG TABLET PO SCH ×2 (09:04→21:43)
[2023-05-13] MEDS: METOPROLOL SUCCINATE 50 MG TAB.SR.24H (TOPROL XL) PO SCH (09:05)
[2023-05-13] MEDS: amLODIPine BESYLATE 10 MG TABLET PO SCH (09:06)
[2023-05-13] MEDS ORDERED: ASPIRIN 81 MG TAB.CHEW PO ONE (09:15)
[2023-05-13 12:00] VITALS: BP_SYST 140; PULSE 100; RESP 18; TEMP 99; O2SAT 98
[2023-05-13 16:53] VITALS: BP_SYST 139; PULSE 112; RESP 20; TEMP 98.7
[2023-05-13 20:03] VITALS: BP_SYST 130; PULSE 63; RESP 20; O2SAT 96
[2023-05-14 00:16] VITALS: BP_SYST 123; PULSE 66; RESP 16; TEMP 97.6; O2SAT 97
[2023-05-14] MEDS: NORMAL SALINE 5 ML DISP.SYRIN IVF SCH ×3 (05:21→21:26)
[2023-05-14 06:55] LABS: BASOPHILS % (AUTO) 0.4 % (0.0-2.0); EOSINOPHILS # (AUTO) 0.2 K/uL (0.0-0.4); EOSINOPHILS % (AUTO) 3.6 % (0.0-4.0); HEMATOCRIT 37.1 % (36-54); HEMOGLOBIN 12.8 g/dL (14.0-18.0); LYMPHOCYTES # (AUTO) 1.2 K/uL (1.0-5.5); LYMPHOCYTES % (AUTO) 19.8 % (20.5-51.5); MEAN CORPUSCULAR HEMOGLOBIN 30 pg (27-31); MEAN CORPUSCULAR HGB CONC 35 % (32-36); MEAN CORPUSCULAR VOLUME 87 fL (79.0-98.0); MONOCYTES # (AUTO) 0.4 K/uL (0.0-1.0); MONOCYTES % (AUTO) 7.2 % (1.7-9.3); NEUTROPHILS # (AUTO) 4.3 K/uL (1.8-7.7); PLATELET COUNT (AUTO) 204 K/uL (130-430); RED BLOOD CELL COUNT(AUTO) 4.29 MIL/uL (4.2-6.2); RED CELL DISTRIBUTION WIDTH 13.3 % (9.0-15.0); WHITE BLOOD COUNT (AUTO) 6.2 K/uL (4.8-10.8)
[2023-05-14 07:25] LABS: CALCIUM 8.7 mg/dL (8.4-11.0); CREATININE 1.79 mg/dL (0.55-1.30); PHOSPHORUS 3.3 mg/dL (2.7-4.5); POTASSIUM 4.2 mmol/L (3.5-5.1)
[2023-05-14 08:00] VITALS: BP_SYST 145; PULSE 65; RESP 18; TEMP 98; O2SAT 97
[2023-05-14] MEDS ORDERED: ASPIRIN 81 MG TAB.CHEW PO SCH (09:00)
[2023-05-14] MEDS: hydrALAZINE HCL 25 MG TABLET PO SCH ×2 (10:24→21:23)
[2023-05-14] MEDS: METOPROLOL SUCCINATE 50 MG TAB.SR.24H (TOPROL XL) PO SCH (10:25)
[2023-05-14] MEDS: amLODIPine BESYLATE 10 MG TABLET PO SCH (10:25)
[2023-05-14 13:39] VITALS: BP_SYST 132; PULSE 69; RESP 18; TEMP 97.8; O2SAT 97
[2023-05-14 20:00] VITALS: BP_SYST 145; PULSE 66; RESP 18; TEMP 98; O2SAT 96
[2023-05-15 00:05] VITALS: BP_SYST 136; PULSE 72; RESP 18; TEMP 98.7; O2SAT 98
[2023-05-15 06:12] LABS: BASOPHILS % (AUTO) 0.3 % (0.0-2.0); EOSINOPHILS # (AUTO) 0.2 K/uL (0.0-0.4); EOSINOPHILS % (AUTO) 3.1 % (0.0-4.0); HEMATOCRIT 36.8 % (36-54); HEMOGLOBIN 12.9 g/dL (14.0-18.0); LYMPHOCYTES # (AUTO) 1.4 K/uL (1.0-5.5); LYMPHOCYTES % (AUTO) 20.1 % (20.5-51.5); MEAN CORPUSCULAR HEMOGLOBIN 30 pg (27-31); MEAN CORPUSCULAR HGB CONC 35 % (32-36); MEAN CORPUSCULAR VOLUME 86 fL (79.0-98.0); MONOCYTES # (AUTO) 0.5 K/uL (0.0-1.0); MONOCYTES % (AUTO) 7.2 % (1.7-9.3); NEUTROPHILS # (AUTO) 4.8 K/uL (1.8-7.7); NEUTROPHILS % (AUTO) 69.3 % (40.0-70.0); PLATELET COUNT (AUTO) 192 K/uL (130-430); RED BLOOD CELL COUNT(AUTO) 4.27 MIL/uL (4.2-6.2); RED CELL DISTRIBUTION WIDTH 13.6 % (9.0-15.0); WHITE BLOOD COUNT (AUTO) 6.9 K/uL (4.8-10.8)
[2023-05-15 06:51] LABS: ALBUMIN 3.1 g/dL (3.4-4.8); CALCIUM 8.1 mg/dL (8.4-11.0); CREATININE 1.72 mg/dL (0.55-1.30); PHOSPHORUS 3.5 mg/dL (2.7-4.5); POTASSIUM 4.3 mmol/L (3.5-5.1); TOTAL BILIRUBIN 0.4 mg/dL (0.0-1.0); TOTAL PROTEIN, SERUM 6.6 g/dL (6.4-8.3)
[2023-05-15] MEDS: NORMAL SALINE 5 ML DISP.SYRIN IVF SCH ×3 (06:53→23:02)
[2023-05-15] MEDS: hydrALAZINE HCL 25 MG TABLET PO SCH ×2 (09:22→20:36)
[2023-05-15] MEDS: ASPIRIN 325 MG TABLET (ECOTRIN) PO SCH (09:22)
[2023-05-15] MEDS: METOPROLOL SUCCINATE 50 MG TAB.SR.24H (TOPROL XL) PO SCH (09:23)
[2023-05-15] MEDS: amLODIPine BESYLATE 10 MG TABLET PO SCH (09:23)
[2023-05-15 09:25] VITALS: BP_SYST 157; PULSE 69; RESP 18; TEMP 98.6; O2SAT 98
[2023-05-15 09:26] VITALS: O2SAT 98
[2023-05-15] MEDS ORDERED: CALCIUM GLUC 2 GM/100ML-NACL 100 ML IV ONE (10:30)
[2023-05-15 11:58] VITALS: BP_SYST 155; PULSE 72; RESP 19; TEMP 97.5; O2SAT 98
[2023-05-15] MEDS ORDERED: CALCIUM GLUCONATE 2 GM in NS 100 ML IV ONE (12:00)
[2023-05-15 17:40] VITALS: BP_SYST 148; PULSE 64; RESP 18; TEMP 97.9; O2SAT 96
[2023-05-15 20:15] VITALS: BP_SYST 136; PULSE 60; RESP 18; TEMP 98.8; O2SAT 96
[2023-05-16] VITALS (9 sets, daily range): BP systolic 119–153; PULSE 54–68; RESP 17–20; TEMP 97.9–99.3; O2SAT 95–98
[2023-05-16 04:50] LABS: BASOPHILS % (AUTO) 0.5 % (0.0-2.0); EOSINOPHILS # (AUTO) 0.2 K/uL (0.0-0.4); EOSINOPHILS % (AUTO) 3.5 % (0.0-4.0); HEMATOCRIT 36.4 % (36-54); HEMOGLOBIN 12.7 g/dL (14.0-18.0); LYMPHOCYTES # (AUTO) 1.4 K/uL (1.0-5.5); LYMPHOCYTES % (AUTO) 24.7 % (20.5-51.5); MEAN CORPUSCULAR HEMOGLOBIN 30 pg (27-31); MEAN CORPUSCULAR HGB CONC 35 % (32-36); MEAN CORPUSCULAR VOLUME 86 fL (79.0-98.0); MONOCYTES # (AUTO) 0.5 K/uL (0.0-1.0); MONOCYTES % (AUTO) 8.6 % (1.7-9.3); NEUTROPHILS # (AUTO) 3.7 K/uL (1.8-7.7); NEUTROPHILS % (AUTO) 62.7 % (40.0-70.0); PLATELET COUNT (AUTO) 194 K/uL (130-430); RED BLOOD CELL COUNT(AUTO) 4.23 MIL/uL (4.2-6.2); RED CELL DISTRIBUTION WIDTH 13.4 % (9.0-15.0); WHITE BLOOD COUNT (AUTO) 5.9 K/uL (4.8-10.8)
[2023-05-16 05:36] LABS: CALCIUM 8.6 mg/dL (8.4-11.0); CREATININE 1.76 mg/dL (0.55-1.30); PHOSPHORUS 3.8 mg/dL (2.7-4.5); POTASSIUM 3.9 mmol/L (3.5-5.1)
[2023-05-16] MEDS: NORMAL SALINE 5 ML DISP.SYRIN IVF SCH ×3 (06:31→22:28)
[2023-05-16] MEDS ORDERED: ECO325 PO (09:56)
[2023-05-16] MEDS: METOPROLOL SUCCINATE 50 MG TAB.SR.24H (TOPROL XL) PO SCH (10:58)
[2023-05-16] MEDS: hydrALAZINE HCL 25 MG TABLET PO SCH ×2 (10:58→22:29)
[2023-05-16] MEDS: ASPIRIN 325 MG TABLET (ECOTRIN) PO SCH (10:59)
[2023-05-16] MEDS: amLODIPine BESYLATE 10 MG TABLET PO SCH (10:59)
[2023-05-17 00:10] VITALS: BP_SYST 135; PULSE 62; RESP 18; TEMP 98.2; O2SAT 99
[2023-05-17 06:05] LABS: BASOPHILS # (AUTO) 0.1 K/uL (0.0-0.2); BASOPHILS % (AUTO) 0.8 % (0.0-2.0); EOSINOPHILS # (AUTO) 0.2 K/uL (0.0-0.4); HEMATOCRIT 37.1 % (36-54); LYMPHOCYTES # (AUTO) 1.8 K/uL (1.0-5.5); LYMPHOCYTES % (AUTO) 28.9 % (20.5-51.5); MEAN CORPUSCULAR HEMOGLOBIN 30 pg (27-31); MEAN CORPUSCULAR HGB CONC 35 % (32-36); MEAN CORPUSCULAR VOLUME 86 fL (79.0-98.0); MONOCYTES # (AUTO) 0.4 K/uL (0.0-1.0); NEUTROPHILS # (AUTO) 3.7 K/uL (1.8-7.7); NEUTROPHILS % (AUTO) 60.3 % (40.0-70.0); PLATELET COUNT (AUTO) 206 K/uL (130-430); RED BLOOD CELL COUNT(AUTO) 4.31 MIL/uL (4.2-6.2); RED CELL DISTRIBUTION WIDTH 13.5 % (9.0-15.0); WHITE BLOOD COUNT (AUTO) 6.1 K/uL (4.8-10.8)
[2023-05-17] MEDS: NORMAL SALINE 5 ML DISP.SYRIN IVF SCH (06:46)
[2023-05-17 07:01] LABS: CALCIUM 8.6 mg/dL (8.4-11.0); CREATININE 1.7 mg/dL (0.55-1.30); PHOSPHORUS 3.8 mg/dL (2.7-4.5)
== END 2023-05-17 07:55 | disposition left against medical advice (07) | DRG 65 ==
LOC: SED 08:51 → STU 10:04
PROVIDERS: ADMIT Preventive Medicine Preventive Medicine/Occupational Environmental Medicine; ATTEND Preventive Medicine Preventive Medicine/Occupational Environmental Medicine
DX: I63.9 Cerebral infarction, unspecified (principal); G81.94 Hemiplegia, unspecified affecting left nondominant side; N17.9 Acute kidney failure, unspecified; N13.30 Unspecified hydronephrosis; I12.9 Hypertensive chronic kidney disease with stage 1 through stage 4 chronic kidney disease, or unspecified chronic kidney disease; E83.41 Hypermagnesemia; N18.30 Chronic kidney disease, stage 3 unspecified; E88.09 Other disorders of plasma-protein metabolism, not elsewhere classified; E87.6 Hypokalemia; R29.721 NIHSS score 21; G51.0 Bell's palsy; I45.10 Unspecified right bundle-branch block; Z51.89 Encounter for other specified aftercare; Z79.82 Long term (current) use of aspirin; Z79.899 Other long term (current) drug therapy; Z86.73 Personal history of transient ischemic attack (TIA), and cerebral infarction without residual deficits; Z87.828 Personal history of other (healed) physical injury and trauma; Z87.891 Personal history of nicotine dependence
CPT/HCPCS: 36415; 70450; 70496; 70498; 70551; 71045; 76376; 76770; 80048; 80053; 80061; 80307; 81000; 81001; 81015; 82948; 83037; 83735; 84100; 84484; 85025; 85610-TC; 85730-TC; 86886; 86900; 86901; 93005; 96374; 97116-GP; 97530-GP; 99291; G0378; J0610; Q9967

== ENCOUNTER 2023-07-04 11:02 | Inpatient (IN) | payer MEDICAID ==
[~2023-07-04] VITALS: Ht 190.5 cm; Wt 86.2 kg
[~2023-07-04 11:02] MED LIST changes: +ECO325 PO; -HYDR-4038 PO; +HYDR25TA86 PO
[2023-07-04 11:46] VITALS: BP_SYST 167; PULSE 96; RESP 16; TEMP 97.6; O2SAT 96
[2023-07-04 13:24] LABS: BASOPHILS % (AUTO) 0.5 % (0.0-2.0); EOSINOPHILS # (AUTO) 0.1 K/uL (0.0-0.4); EOSINOPHILS % (AUTO) 2.1 % (0.0-4.0); HEMATOCRIT 38.6 % (36-54); HEMOGLOBIN 13.4 g/dL (14.0-18.0); LYMPHOCYTES # (AUTO) 1.1 K/uL (1.0-5.5); LYMPHOCYTES % (AUTO) 19.3 % (20.5-51.5); MEAN CORPUSCULAR HEMOGLOBIN 31 pg (27-31); MEAN CORPUSCULAR HGB CONC 35 % (32-36); MEAN CORPUSCULAR VOLUME 88 fL (79.0-98.0); MONOCYTES # (AUTO) 0.4 K/uL (0.0-1.0); MONOCYTES % (AUTO) 7.6 % (1.7-9.3); NEUTROPHILS % (AUTO) 70.5 % (40.0-70.0); PLATELET COUNT (AUTO) 258 K/uL (130-430); RED CELL DISTRIBUTION WIDTH 14.9 % (9.0-15.0); WHITE BLOOD COUNT (AUTO) 5.6 K/uL (4.8-10.8)
[2023-07-04 13:33] LABS: ANION GAP 7 (5-15); CALCIUM 9.3 mg/dL (8.4-11.0); CARBON DIOXIDE 29 mmol/L (23-29); CHLORIDE 106 mmol/L (98-107); CREATININE 2.08 mg/dL (0.55-1.30); GFR AFRICAN AMERICAN 42 mL/min (>90); GLUCOSE 106 mg/dL (74-106); SODIUM SERUM 142 mmol/L (136-145); UREA NITROGEN, BLOOD 28 mg/dL (8-21)
[2023-07-04 13:34] LABS: GFR NON AFRICAN-AMERICAN 35 mL/min (>90)
[2023-07-04] MEDS: hydrALAZINE HCL 20 MG/ML VIAL IVP ONE (15:34)
[2023-07-04] MEDS: cloNIDine HCL 0.2 MG TABLET PO ONE (16:25)
[2023-07-04] MEDS ORDERED: cloNIDine HCL 0.1 MG TABLET PO PRN (19:15)
[2023-07-04] MEDS: ASPIRIN 81 MG TABLET(ECOTRIN) PO ONE (19:57)
[2023-07-04 20:00] VITALS: BP_SYST 136; PULSE 67; RESP 18; TEMP 98.8; O2SAT 94
[2023-07-04] MEDS: CLOPIDOGREL BISULFATE 75 MG TABLET PO ONE (20:03)
[2023-07-05] VITALS: BP_SYST 142; PULSE 68; RESP 20; TEMP 97.7; O2SAT 96
[2023-07-05] MEDS: METOPROLOL TARTRATE 50 MG TABLET PO SCH (00:30)
[2023-07-05] MEDS: hydrALAZINE HCL 25 MG TABLET PO SCH (00:31)
[2023-07-05 06:04] LABS: BASOPHILS % (AUTO) 0.4 % (0.0-2.0); EOSINOPHILS # (AUTO) 0.2 K/uL (0.0-0.4); EOSINOPHILS % (AUTO) 3.6 % (0.0-4.0); HEMATOCRIT 37.5 % (36-54); HEMOGLOBIN 12.9 g/dL (14.0-18.0); LYMPHOCYTES # (AUTO) 1.2 K/uL (1.0-5.5); LYMPHOCYTES % (AUTO) 19.7 % (20.5-51.5); MEAN CORPUSCULAR HEMOGLOBIN 30 pg (27-31); MEAN CORPUSCULAR HGB CONC 34 % (32-36); MEAN CORPUSCULAR VOLUME 88 fL (79.0-98.0); MONOCYTES # (AUTO) 0.5 K/uL (0.0-1.0); MONOCYTES % (AUTO) 8.1 % (1.7-9.3); NEUTROPHILS # (AUTO) 4.1 K/uL (1.8-7.7); NEUTROPHILS % (AUTO) 68.2 % (40.0-70.0); PLATELET COUNT (AUTO) 251 K/uL (130-430); RED BLOOD CELL COUNT(AUTO) 4.28 MIL/uL (4.2-6.2); RED CELL DISTRIBUTION WIDTH 15.3 % (9.0-15.0)
[2023-07-05 06:36] LABS: BARBITURATE, URINE NEGATIVE (NEG <=200); BENZODIAZEPINE, URINE NEGATIVE (NEG <=150); CANNABINOID, URINE NEGATIVE (NEG <=50); COCAINE, URINE NEGATIVE (NEG <=150); METHAMPHETAMINES SCREEN,URINE NEGATIVE (NEG <=500); OPIATE, URINE NEGATIVE (NEG <=100); PHENCYCLIDINE SCREEN,URINE NEGATIVE (NEG <=25); URINE AMPHETAMINE NEGATIVE (NEG <=500); URINE METHADONE NEGATIVE (NEG <=200); URINE OXYCODONE SCREEN NEGATIVE (NEG <=100)
[2023-07-05 06:37] LABS: UR TRICYCLIC ANTIDEPRESSANTS NEGATIVE (NEG <=300)
[2023-07-05 06:43] LABS: ALBUMIN 3.2 g/dL (3.4-4.8); CALCIUM 8.8 mg/dL (8.4-11.0); CREATININE 1.91 mg/dL (0.55-1.30); FREE T4 (FREE THYROXINE) 1.3 ng/dL (0.6-1.6); PHOSPHORUS 4.1 mg/dL (2.7-4.5); POTASSIUM 3.1 mmol/L (3.5-5.1); THYROID STIMULATING HORMONE 0.3 uIu/mL (0.34-4.82); TOTAL BILIRUBIN 0.5 mg/dL (0.0-1.0); TOTAL PROTEIN, SERUM 6.6 g/dL (6.4-8.3)
[2023-07-05] MEDS ORDERED: GADOBENATE DIMEGLUMINE 529 MG/ML, 5 ML VIAL IV ONE (07:47)
[2023-07-05 08:00] VITALS: BP_SYST 167; PULSE 63; RESP 18; TEMP 97.5; O2SAT 98
[2023-07-05 09:02] LABS: BILIRUBIN,URINE NEGATIVE (NEGATIVE); BLOOD, URINE 2+ (NEGATIVE); CLARITY/URINE CLEAR (CLEAR); COLOR,URINE YELLOW (YELLOW); GLUCOSE,URINE NEGATIVE (NEGATIVE); KETONES,URINE NEGATIVE (NEGATIVE); LEUKOCYTE ESTERASE ,URINE NEGATIVE (NEGATIVE); NITRITE, URINE NEGATIVE (NEGATIVE); PH,URINE 5.5 (5.0-8.0); PROTEIN URINE 2+ (NEGATIVE)
[2023-07-05 09:12] LABS: BACTERIA,URINE FEW /HPF (None Seen); HYALINE CASTS, URINE 0-10 /LPF (None Seen); MUCUS,URINE 1+ /LPF (None Seen); WBC,URINE 0-3 /HPF (0-3)
[2023-07-05 09:13] VITALS: O2SAT 98
[2023-07-05] MEDS: amLODIPine BESYLATE 10 MG TABLET PO SCH (09:44)
[2023-07-05] MEDS: ASPIRIN 81 MG TABLET(ECOTRIN) PO SCH (09:44)
[2023-07-05] MEDS: CLOPIDOGREL BISULFATE 75 MG TABLET PO SCH (09:44)
[2023-07-05 11:19] VITALS: BP_SYST 135; PULSE 60; RESP 16; TEMP 99; O2SAT 98
[2023-07-05] MEDS: POTASSIUM CHLORIDE 20 MEQ TABLET.ER PO ONE (14:58)
[2023-07-05 15:27] VITALS: BP_SYST 139; PULSE 102; RESP 16; TEMP 97.3; O2SAT 96
[2023-07-05 20:00] VITALS: BP_SYST 142; PULSE 89; RESP 20; TEMP 98.3; O2SAT 96
[2023-07-06 04:00] VITALS: BP_SYST 137; PULSE 85; RESP 20; TEMP 97.7; O2SAT 98
[2023-07-06 06:49] LABS: BASOPHILS % (AUTO) 0.2 % (0.0-2.0); EOSINOPHILS # (AUTO) 0.2 K/uL (0.0-0.4); EOSINOPHILS % (AUTO) 3.7 % (0.0-4.0); HEMATOCRIT 35.8 % (36-54); HEMOGLOBIN 12.4 g/dL (14.0-18.0); LYMPHOCYTES # (AUTO) 1.2 K/uL (1.0-5.5); LYMPHOCYTES % (AUTO) 17.5 % (20.5-51.5); MEAN CORPUSCULAR HEMOGLOBIN 30 pg (27-31); MEAN CORPUSCULAR HGB CONC 35 % (32-36); MEAN CORPUSCULAR VOLUME 87 fL (79.0-98.0); MONOCYTES # (AUTO) 0.6 K/uL (0.0-1.0); NEUTROPHILS # (AUTO) 4.7 K/uL (1.8-7.7); NEUTROPHILS % (AUTO) 69.6 % (40.0-70.0); PLATELET COUNT (AUTO) 233 K/uL (130-430); RED BLOOD CELL COUNT(AUTO) 4.09 MIL/uL (4.2-6.2); RED CELL DISTRIBUTION WIDTH 15.2 % (9.0-15.0); WHITE BLOOD COUNT (AUTO) 6.7 K/uL (4.8-10.8)
[2023-07-06 07:25] LABS: ALBUMIN 3.1 g/dL (3.4-4.8); CALCIUM 8.7 mg/dL (8.4-11.0); CREATININE 1.62 mg/dL (0.55-1.30); POTASSIUM 4.4 mmol/L (3.5-5.1); TOTAL BILIRUBIN 0.6 mg/dL (0.0-1.0); TOTAL PROTEIN, SERUM 6.5 g/dL (6.4-8.3)
[2023-07-06 08:00] VITALS: BP_SYST 141; PULSE 64; RESP 16; TEMP 98.5; O2SAT 97
[2023-07-06 08:12] VITALS: O2SAT 99
[2023-07-06 12:02] VITALS: BP_SYST 134; PULSE 67; RESP 19; TEMP 97.2; O2SAT 99
[2023-07-06 16:15] VITALS: BP_SYST 135; PULSE 71; RESP 18; TEMP 97.3; O2SAT 97
[2023-07-06 20:00] VITALS: BP_SYST 132; PULSE 58; RESP 20; TEMP 97.7; O2SAT 98
[2023-07-07 04:00] VITALS: BP_SYST 129; PULSE 59; RESP 20; TEMP 98; O2SAT 99
[2023-07-07 08:08] VITALS: BP_SYST 158; PULSE 62; RESP 18; TEMP 98; O2SAT 99
[2023-07-07 08:27] VITALS: O2SAT 97
[2023-07-07 12:00] VITALS: BP_SYST 144; PULSE 66; RESP 18; TEMP 98.3; O2SAT 98
[2023-07-07 16:00] VITALS: BP_SYST 149; PULSE 71; RESP 18; TEMP 98.7; O2SAT 97
[2023-07-07 20:00] VITALS: PULSE 68; RESP 20; TEMP 97.7; O2SAT 98
[2023-07-08] VITALS: BP_SYST 137; PULSE 62; RESP 20; TEMP 98; O2SAT 97
[2023-07-08 04:00] VITALS: BP_SYST 141; PULSE 63; RESP 18; TEMP 97.3; O2SAT 98
[2023-07-08 08:00] VITALS: BP_SYST 154; PULSE 64; RESP 19; TEMP 98.1; O2SAT 98
[2023-07-08 08:35] VITALS: O2SAT 97
[2023-07-08] MEDS: ONDANSETRON HCL 4 MG/2 ML VIAL IVP ONE (11:00)
[2023-07-08] MEDS ORDERED: ONDANSETRON HCL 4 MG/2 ML VIAL IVP PRN (11:00)
[2023-07-08 12:00] VITALS: BP_SYST 140; PULSE 18; RESP 18; TEMP 97.3; O2SAT 97
[2023-07-08] MEDS: BISACODYL 5 MG TABLET.DR (DULCOLAX) PO ONE (12:45)
[2023-07-08] MEDS: DOCUSATE SODIUM 250 MG CAPSULE PO ONE (13:00)
[2023-07-08] MEDS ORDERED: NALOXONE HCL 0.4 MG/ML AMP (NARCAN) IVP PRN (14:15)
[2023-07-08 20:00] VITALS: BP_SYST 145; PULSE 72; RESP 18; TEMP 98; O2SAT 99
[2023-07-08] MEDS: DOCUSATE SODIUM 250 MG CAPSULE PO SCH (20:09)
[2023-07-08] MEDS: CLOTRIMAZOLE/BETAMET DIPROP 15 GM TUBE TP SCH (20:11)
[2023-07-09] VITALS: BP_SYST 144; PULSE 67; RESP 18; TEMP 97.6; O2SAT 99
[2023-07-09 07:11] LABS: BASOPHILS % (AUTO) 0.2 % (0.0-2.0); EOSINOPHILS # (AUTO) 0.2 K/uL (0.0-0.4); EOSINOPHILS % (AUTO) 2.1 % (0.0-4.0); HEMATOCRIT 38.4 % (36-54); HEMOGLOBIN 13.4 g/dL (14.0-18.0); LYMPHOCYTES # (AUTO) 1.2 K/uL (1.0-5.5); LYMPHOCYTES % (AUTO) 16.3 % (20.5-51.5); MEAN CORPUSCULAR HEMOGLOBIN 31 pg (27-31); MEAN CORPUSCULAR HGB CONC 35 % (32-36); MEAN CORPUSCULAR VOLUME 88 fL (79.0-98.0); MONOCYTES # (AUTO) 0.4 K/uL (0.0-1.0); NEUTROPHILS # (AUTO) 5.4 K/uL (1.8-7.7); NEUTROPHILS % (AUTO) 75.4 % (40.0-70.0); PLATELET COUNT (AUTO) 234 K/uL (130-430); RED BLOOD CELL COUNT(AUTO) 4.36 MIL/uL (4.2-6.2); RED CELL DISTRIBUTION WIDTH 15.1 % (9.0-15.0); WHITE BLOOD COUNT (AUTO) 7.2 K/uL (4.8-10.8)
[2023-07-09 07:34] LABS: ALANINE AMINOTRANSFERASE 12 U/L (12-78); ALBUMIN 3.1 g/dL (3.4-4.8); ANION GAP 7 (5-15); ASPARTATE AMINOTRANSFERASE < 5 U/L (10-37); CALCIUM 8.9 mg/dL (8.4-11.0); CARBON DIOXIDE 28 mmol/L (23-29); CHLORIDE 104 mmol/L (98-107); CREATININE 1.47 mg/dL (0.55-1.30); GFR AFRICAN AMERICAN 63 mL/min (>90); GFR NON AFRICAN-AMERICAN 52 mL/min (>90); GLUCOSE 96 mg/dL (74-106); POTASSIUM 4.8 mmol/L (3.5-5.1); SODIUM SERUM 139 mmol/L (136-145); TOTAL BILIRUBIN 0.6 mg/dL (0.0-1.0); TOTAL PROTEIN, SERUM 6.8 g/dL (6.4-8.3); UREA NITROGEN, BLOOD 28 mg/dL (8-21)
[2023-07-09 08:07] VITALS: BP_SYST 149; PULSE 58; RESP 18; TEMP 99; O2SAT 98
[2023-07-09] MEDS: CLOTRIMAZOLE/BETAMET DIPROP 15 GM TUBE TP ONE (09:26)
[2023-07-09] MEDS: ATORVASTATIN 10 MG TABLET PO SCH (09:27)
[2023-07-09 12:45] VITALS: BP_SYST 159; PULSE 56; RESP 16; TEMP 99.1; O2SAT 98
[2023-07-09 16:50] VITALS: BP_SYST 155; PULSE 58; RESP 16; TEMP 99.1; O2SAT 98
[2023-07-09 21:00] VITALS: BP_SYST 174; PULSE 58; RESP 18; TEMP 98.2; O2SAT 97
[2023-07-10 04:00] VITALS: BP_SYST 153; PULSE 65; RESP 18; TEMP 98; O2SAT 98
[2023-07-10 08:00] VITALS: BP_SYST 155; PULSE 96; RESP 18; TEMP 98.6; O2SAT 99
[2023-07-10] MEDS: HYDROcodone/ACETAMIN 5-325 MG TAB (NORCO/ VICODIN) PO PRN (09:21)
[2023-07-10 12:00] VITALS: BP_SYST 144; PULSE 88; RESP 18; TEMP 98; O2SAT 98
[2023-07-10 16:00] VITALS: BP_SYST 148; PULSE 89; RESP 18; TEMP 98; O2SAT 99
[2023-07-10 19:00] VITALS: BP_SYST 132; PULSE 83; RESP 18; TEMP 97.7; O2SAT 99
[2023-07-10 20:00] VITALS: BP_SYST 136; PULSE 83; RESP 18; TEMP 97.7; O2SAT 99
[2023-07-11] VITALS (9 sets, daily range): BP systolic 126–152; PULSE 56–98; RESP 16–18; TEMP 97.6–97.7; O2SAT 94–99
[2023-07-12] VITALS: BP_SYST 129; PULSE 78; RESP 18; TEMP 97.5; O2SAT 99
[2023-07-12 04:00] VITALS: BP_SYST 130; PULSE 96; RESP 18; TEMP 97.7; O2SAT 99
[2023-07-12 07:00] VITALS: O2SAT 99
[2023-07-12 08:00] VITALS: BP_SYST 165; PULSE 67; RESP 18; TEMP 97.6; O2SAT 99
[2023-07-12] MEDS ORDERED: Aspirin Ec PO (16:55)
[2023-07-12] MEDS ORDERED: HYDR25TA86 PO (16:55)
[2023-07-12] MEDS ORDERED: CLOP75TA32 PO (16:55)
[2023-07-12] MEDS ORDERED: LIP10 PO (16:55)
[2023-07-12] MEDS ORDERED: NOR10 PO (16:55)
[2023-07-12] MEDS ORDERED: METO-442 PO (16:55)
[2023-07-12] MEDS ORDERED: HYDR-3919 PO (17:07)
[2023-07-12] MEDS ORDERED: HYDR-3917 PO (17:12)
[2023-07-12] MEDS: hydrALAZINE HCL 25 MG TABLET PO ONE (17:31)
[2023-07-12 17:36] VITALS: BP_SYST 147; PULSE 85; RESP 18; TEMP 97.4; O2SAT 97
[2023-07-12] MEDS ORDERED: hydrALAZINE HCL 25 MG TABLET PO SCH (21:00)
== END 2023-07-12 18:15 | disposition home or self-care (01) | DRG 45 ==
LOC: SED 11:02 → STU 16:14 → SMU 07-09 12:33
PROVIDERS: ADMIT Internal Medicine; ATTEND Internal Medicine
DX: I63.9 Cerebral infarction, unspecified (principal); N17.0 Acute kidney failure with tubular necrosis; E44.1 Mild protein-calorie malnutrition; I13.0 Hypertensive heart and chronic kidney disease with heart failure and stage 1 through stage 4 chronic kidney disease, or unspecified chronic kidney disease; I50.32 Chronic diastolic (congestive) heart failure; G81.94 Hemiplegia, unspecified affecting left nondominant side; H53.462 Homonymous bilateral field defects, left side; I70.1 Atherosclerosis of renal artery; N18.9 Chronic kidney disease, unspecified; N31.9 Neuromuscular dysfunction of bladder, unspecified; E87.6 Hypokalemia; I35.0 Nonrheumatic aortic (valve) stenosis; N18.2 Chronic kidney disease, stage 2 (mild); M54.16 Radiculopathy, lumbar region; F41.9 Anxiety disorder, unspecified; Z79.82 Long term (current) use of aspirin; Z86.73 Personal history of transient ischemic attack (TIA), and cerebral infarction without residual deficits; Z87.828 Personal history of other (healed) physical injury and trauma; Z87.891 Personal history of nicotine dependence; Z79.899 Other long term (current) drug therapy; Z91.199 Patient's noncompliance with other medical treatment and regimen due to unspecified reason; Z68.23 Body mass index [BMI] 23.0-23.9, adult
CPT/HCPCS: 36415; 70450-TC; 70553; 71045; 72131; 76770; 80048; 80053; 80061; 80307; 81000; 81001; 81015; 83880; 84100; 84439; 84443; 84484; 85025; 93005; 93306; 93880; 96374; 97110-GP; 97112-GP; 97116-GP; 97530-GP; 99285; A9577; G0378; J0360; J2405

== ENCOUNTER 2023-11-10 19:59 | Emergency (ER) | payer MEDICAID ==
[~2023-11-10] VITALS: Ht 182.9 cm; Wt 86.2 kg
[~2023-11-10 19:59] MED LIST changes: +ATOR-449 PO; +Aspirin Ec PO; -CLON0.1T PO; +CLOP75TA32 PO; -ECO325 PO; +HYDR-3917 PO; -METO50TA7 PO; -NOR10 PO
[2023-11-10 20:13] VITALS: BP_SYST 189; PULSE 82; RESP 22; TEMP 98.1; O2SAT 96
[2023-11-10 20:45] LABS: BASOPHILS % (AUTO) 0.5 % (0.0-2.0); EOSINOPHILS # (AUTO) 0.1 K/uL (0.0-0.4); MEAN CORPUSCULAR VOLUME 86 fL (79.0-98.0); MONOCYTES # (AUTO) 0.5 K/uL (0.0-1.0); NEUTROPHILS # (AUTO) 5.6 K/uL (1.8-7.7)
[2023-11-10 20:51] LABS: EOSINOPHILS % (AUTO) 1.4 % (0.0-4.0); HEMATOCRIT 37.6 % (36-54); HEMOGLOBIN 13.6 g/dL (14.0-18.0); LYMPHOCYTES # (AUTO) 1.2 K/uL (1.0-5.5); MEAN CORPUSCULAR HEMOGLOBIN 31 pg (27-31); MEAN CORPUSCULAR HGB CONC 36 % (32-36); MONOCYTES % (AUTO) 6.5 % (1.7-9.3); NEUTROPHILS % (AUTO) 75.6 % (40.0-70.0); PLATELET COUNT (AUTO) 196 K/uL (130-430); RED CELL DISTRIBUTION WIDTH 13.2 % (9.0-15.0); WHITE BLOOD COUNT (AUTO) 7.5 K/uL (4.8-10.8)
[2023-11-10 21:02] LABS: ANION GAP 10 (5-15); CALCIUM 8.8 mg/dL (8.4-11.0); CARBON DIOXIDE 26 mmol/L (23-29); CHLORIDE 103 mmol/L (98-107); GFR AFRICAN AMERICAN 57 mL/min (>90); GLUCOSE 101 mg/dL (74-106); POTASSIUM 3.3 mmol/L (3.5-5.1); SODIUM SERUM 139 mmol/L (136-145); UREA NITROGEN, BLOOD 17 mg/dL (8-21)
[2023-11-10 21:03] LABS: GFR NON AFRICAN-AMERICAN 47 mL/min (>90)
[2023-11-10] MEDS: POTASSIUM CHLORIDE 20 MEQ TABLET.ER PO ONE (21:39)
[2023-11-10] MEDS: hydrALAZINE HCL 20 MG/ML VIAL IVP ONE (21:51)
[2023-11-10 22:21] VITALS: BP_SYST 193; PULSE 71; RESP 18; TEMP 98.1; O2SAT 97
== END 2023-11-10 22:21 | disposition home or self-care (01) ==
LOC: SED 19:59
DX: R07.89 Other chest pain (principal); E87.6 Hypokalemia; I10 Essential (primary) hypertension; Z79.899 Other long term (current) drug therapy; Z79.82 Long term (current) use of aspirin
CPT/HCPCS: 99285; 96374; 71045; 80048; 83880; 85025; 84484; 36415; 93005; G0482; J0360